=== PATIENT | male | born 1950 | race Caucasian/White ===

== ENCOUNTER 2017-07-14 06:40 | Outpatient (CLI) | payer MEDICARE ==
[~2017-07-14] VITALS: Ht 177.8 cm; Wt 84.1 kg
--- NOTE | ~2017-07-14 | HEMODYNAMI ---
PATIENT:ZEB ROJAS MEDICAL RECORD: [id number] : 50 LOCATION:[facility] ADMISSION DATE: 07/14/17 Generatedon:07/14/20179:33 Patient name: ZEB ROJAS Patient #: [id number] SSN: : 1950 Date of study: 07/14/2017 Page: Of Hemodynamic Procedure Report Patient Data Patient Demographics Procedure consent was obtained First Name: ZEB Gender: Male Last Name: CRYSTAL : 1950 Patient #: [id number] Age: 66 year(s) Race: Additional ID: [id number] Contact details [address]: [address] [place] [address] ROAD State: [place] City: [place] Zip code: [address] Past Medical History Allergies: No known allergies Admission Admission Data Admission Date: 07/14/2017 Admission Time: 6:40 Height (in.): 61 BSA: 1.81 (m2) Height (cm.): 154.94 BMI: 34.39 (kg/m2) Weight (lbs.): 182 Weight (kg.): 82.55 Procedure Procedure Types Cath Procedure Diagnostic Procedure LHC LHC w/Coronaries w/Grafts PCI Procedure PTCA PTCA Initial Miscellaneous Procedures Moderate Sedation up to 15 minutes Moderate Sedation up to 30 minutes Procedure Description Procedure Date Procedure Date: 07/14/2017 Procedure Start Time: 8:52 Procedure End Time: 9:29 Procedure Staff Name Function Kassandra Mcneil RT Monitor Judith Howell RT Scrub Luis Felipe Mendoza MD Performing Physician Lyssa Hankins RN Nurse Arianna Murphy RN Nurse Procedure Data Cath Procedure Fluoroscopy Diagnostic fluoroscopy Total fluoroscopy Time: 7.1 time: 7.1 min min Diagnostic fluoroscopy Total fluoroscopy dose: 952 dose: 952 mGy mGy Contrast Material Contrast Material Type Amount (ml) Isovue 300 127 Entry Location Entry Primary Successful Side Size Upsize Upsize Entry Closure Succes sful Closure Location (Fr) 1 (Fr) 2 (Fr) Remarks Device Remarks Femoral Right 5 Fr 6 Fr Exoseal artery Short Estimated blood loss: 10 ml Diagnostic catheters Device Type Used For End Catheter Placement Cordis 5Fr JL 4.0 Procedure Catheter (MP) Diagnostic Infinity 5Fr Procedure AR MOD Catheter Cordis 5Fr Pigtail Procedure Catheter (MP) Procedure Complications No complications Procedure Medications Medication Administration Route Dosage 0.9% NaCl I.V. 100 ml/hr Oxygen NC 2 l/min Lidocaine 2% added to field 20 Heparin Flush Bag added to field 2 bags (1000units/500ml NS) Fentanyl I.V. 50 mcg Versed I.V. 1 mg Versed I.V. 1 mg Fentanyl I.V. 50 mcg Heparin Bolus I.V. 8500 units Fentanyl I.V. 25 mcg Versed I.V. 0.5 mg Nitroglycerin IC/IA I.C. 100 mcg Hemodynamics Rest BSA: 1.81 (m2) O2 Consumption: Estimated: 209.58 (ml/min) O2 Consumption indexed : Estimated:115.79 (ml/min/m) Heart Rate: 68 (bpm) Pressure Samples Time Site Value (mmHg) Purpose Heart Use Rate(bpm) 9:04 LV 97/-11,6 Snapshot 78 9:05 AO 106/59(77) Pullback 72 9:05 LV 95/2,5 Pullback 72 Gradients Valve Time Site 1 Site 2 Mean SEP/DFP Peak To Heart Use (mmHg) (sec/min) Peak Rate (mmHg) (bpm) Aortic 9:05 LV AO 0 72 95/2,5 106/59(77) Calculations Valve P-P Mean Valve Index Valve Source Name Gradient Area Flow (cm2) Aortic 0 0 Snapshots Pre Cath Intra NCS Post Cath Vital Signs Time Heart Resp SPO2 etCO2 NIBP (mmHg) Rhythm Pain Sedation Rate (ipm) (%) (mmHg) Status Level (bpm) 8:33:11 68 16 95 147/91(122) NSR 0 (11) 10(A) , No pain 8:37:29 66 14 94 36.2 126/76(100) NSR 0 (11) 10(A) , No pain 8:41:39 65 16 97 38.4 118/75(92) NSR 0 (11) 10(A) , No pain 8:45:45 65 14 97 36.9 123/74(99) NSR 0 (11) 10(A) , No pain 8:49:57 75 16 95 9 105/66(81) NSR 0 (11) 9(A) , No pain 8:53:59 66 14 95 0 113/72(83) NSR 0 (11) 9(A) , No pain 8:58:04 69 16 95 9.8 101/67(91) NSR 0 (11) 10(A) , No pain 9:02:59 74 15 95 34.6 103/72(85) NSR 0 (11) 9(A) , No pain 9:06:59 71 15 97 46 115/73(83) NSR 0 (11) 10(A) , No pain 9:11:04 67 16 98 29.4 103/69(90) NSR 0 (11) 9(A) , No pain 9:15:10 77 14 96 0 91/56(73) NSR 0 (11) 9(A) , No pain 9:19:51 83 21 96 0 92/82(90) NSR 0 (11) 9(A) , No pain 9:23:53 85 13 96 0 81/55(63) NSR 0 (11) 10(A) , No pain 9:27:50 89 14 95 0 96/57(72) NSR 0 (11) 10(A) , No pain Medications Time Medication Route Dose Verified Delivered Reason Not es Effectiveness by by 8:11:53 0.9% NaCl I.V. 100ml/hr Luis Felipe Lyssa used for Reji Hankins RN procedure 8:12:08 Oxygen NC 2 l/min Luis Felipe Lyssa Per physician Reji Hankins RN 8:12:26 Lidocaine 2% added 20ml vial Luis Felipe Luis Felipe for local to Reji Mendoza MD anesthetic field 8:12:38 Heparin Flush added 2 bags Luis Felipe Luis Felipe used for Bag to Reji Mendoza MD procedure (1000units/500ml field NS) 8:47:38 Fentanyl I.V. 50 mcg Luis Felipe Lyssa for sedation Reji Hankins RN 8:47:48 Versed I.V. 1 mg Luis Felipe Lyssa for sedation Reji Hankins RN 8:51:49 Versed I.V. 1 mg Luis Felipe Lyssa for sedation Reji Hankins RN 8:52:02 Fentanyl I.V. 50 mcg Luis Felipe Lyssa for sedation Reji Hankins RN 9:10:16 Heparin Bolus I.V. 8500units Ulis Felipe Lyssa for ezio ified Reji Hankins RN anticoagulation by 9:13:17 Fentanyl I.V. 25 mcg Luis Felipe Omalley for sedation Reji Hankins RN 9:13:27 Versed I.V. 0.5 mg Luis Felipe Lyssa for sedation Reji Hankins RN 9:22:18 Nitroglycerin I.C. 100 mcg Luis Felipe Luis Felipe for IC/IA Reji Mendoza MD vasodilation Procedure Log Time Note 7:56:06 Kassandra Mcneil RT(R) sent for patient. Start room use. 7:56:07 Time tracking: Regular hours 7:56:12 Plan of Care:Hemodynamics will remain stable., Cardiac rhythm will remain stable., Comfort level will be maintained., Respiratory function will remain adequate., Patient/ family verbilizes understanding of procedure., Procedure tolerated without complication., Recovers from procedure without complications.. 8:11:53 0.9% NaCl 100ml/hr I.V. was administered by Lyssa Hankins RN; used for procedure; 8:12:08 Oxygen 2 l/min NC was administered by Lyssa Hankins RN; Per physician; 8:12:26 Lidocaine 2% 20ml vial added to field was administered by Luis Felipe Mendoza MD; for local anesthetic; 8:12:38 Heparin Flush Bag (1000units/500ml NS) 2 bags added to field was administered by Luis Felipe Mendoza MD; used for procedure; 8:27:26 Patient received from Pre/Post Procedure Room to [facility] 2 Alert and oriented. Tansferred to table in Supine position. 8:27:28 Warm blankets applied, and sisi hugger turned on for patient comfort. 8:27:28 Correct patient and procedure confirmed by team. 8:27:36 Signed procedure consent form obtained from patient. 8:27:37 ECG and BP/O2 sat monitors applied to patient. 8:32:03 Vital chart was started 8:36:18 Baseline sample Acquired. 8:36:22 Rhythm: sinus rhythm 8:36:23 Full Disclosure recording started 8:36:39 H&P Date Dictated: 07/04/2017 Within 30 days and on chart., H&P Addendum completed by physician on day of procedure. (MUST COMPLETE FOR ALL OUTPATIENTS). 8:36:42 Pre-procedure instructions explained to patient. 8:36:44 Family in waiting room. 8:36:46 Patient NPO since Midnight. 8:36:57 Patient allergic to No known allergies 8:37:01 Is the patient allergic to Iodine/contrast media? No. 8:37:03 Is patient on blood thinner?Yes 8:37:06 ACC The patient was administered the following blood thiners within the last 24 hours: ACCPlavix 8:37:09 Patient diabetic? No. 8:37:13 Snore? Yes 8:37:15 Sleep apnea? No 8:37:19 Dentures? No ? 8:37:28 Patient pain scale 0/10 ?. 8:37:35 IV patent on arrival in left forearm with 0.9% NaCl at O. 8:37:43 Lab results completed and on chart. 8:37:49 Right groin area was prepped with chlora-prep and draped in sterile fashion 8:37:50 Alarms reviewed by R. N. 8:37:50 Sharps counted by scrub and verified by R.N. 8:37:51 Physician paged 8:37:52 Physician arrived 8:38:31 Use device set Femoral Dx 8:40:59 ACIST Syringe (61252) opened to sterile field. 8:41:00 Bag Decanter (2002) opened to sterile field. 8:41:00 Medline Cath Pack ([id number]) opened to sterile field. 8:41:00 Terumo 5Fr [place] Sheath opened to sterile field. 8:41:01 St Chris 260cm J .035 wire opened to sterile field. 8:41:06 ACIST Hand Control (05078) opened to sterile field. 8:41:07 ACIST Manifold (37382) opened to sterile field. 8:41:07 Diagnostic Infinity 5Fr Multipack catheter opened to sterile field. 8:41:08 Tegaderm 4 x 4 (1626W) opened to sterile field. 8:41:08 PERCUTANEOUS ENTRY 19GA needle opened to sterile field. 8:47:08 --------ALL STOP TIME OUT------ 8:47:09 Final Timeout: patient, procedure, and site verified with staff and physician. All members of the team are in agreement. 8:47:11 Right groin site verified by team. 8:47:16 Physical assessment completed. ASA score P 2 - A patient with mild systemic disease as per Luis Felipe Mendoza MD. 8:47:23 Sedation plan: IV Moderate Sedation Medication:Versed, Fentanyl 8:47:38 Fentanyl 50 mcg I.V. was administered by Lyssa Hankins RN; for sedation; 8:47:48 Versed 1 mg I.V. was administered by Lyssa Hankins RN; for sedation; 8:49:25 Procedure type changed to Cath procedure, Diagnostic procedure, LHC, LHC w/Coronaries w/Grafts, PCI procedure, PTCA, PTCA Initial, Miscellaneous Procedures, Moderate Sedation up to 15 minutes, Moderate Sedation up to 30 minutes 8:50:02 Patient Height : 61 inches 8:50:08 Patient Weight : 182 lbs 8:51:49 Versed 1 mg I.V. was administered by Lyssa Hankins RN; for sedation; 8:52:02 Fentanyl 50 mcg I.V. was administered by Lyssa Hankins RN; for sedation; 8:52:07 Procedure started. 8:52:18 Local anesthetic to right femoral artery with Lidocaine 2% by Kassandra RESENDEZ(R).INITIAL ACCESS ONLY 8:55:49 A 5 Fr sheath was inserted into the Right Femoral artery 8:56:24 A Cordis 5Fr JL 4.0 Catheter (MP) was advanced over the wire and used for Procedure. 8:58:22 LCA angiography performed. 9:00:29 A Diagnostic Infinity 5Fr AR MOD Catheter was advanced over the wire and used for Procedure. 9:00:37 RCA angiography performed. 9:01:15 SVG to OM angiography performed. 9:01:30 SVG to Diag angiography performed. 9:02:44 Catheter removed. 9:03:28 INFLATOR: [employer] BasixCompak Inflation Kit (WM6100) opened to sterile field. 9:03:29 Terumo 6Fr [place] Sheath opened to sterile field. 9:03:30 Medtronic Launcher 6Fr AR 1.0 SH guide catheter opened to sterile field. 9:04:46 A Cordis 5Fr Pigtail Catheter (MP) was advanced over the wire and used for Procedure. 9:05:24 LV gram done using FLOYD 9:05:29 EF : 55 % 9:05:31 Catheter removed. 9:05:33 Proceeding to intervention. 9::49 Sheath upsized to a 6 Fr Short. 9:06:00 6 Fr AR 1 SH guide catheter was inserted over the wire 9:06:16 BMW wire advanced. 9:06:35 Mcclellan BMW [facility] 2 Straight 300cm 0.014 guide opened to sterile field. 9:07:23 TUBING: High Pressure Extension Tubing (Reji) ([id number]) opened to sterile field. 9:10:16 Heparin Bolus 8500units I.V. was administered by Lyssa Hankins RN; for anticoagulation; verified by 9:13:17 Fentanyl 25 mcg I.V. was administered by Lyssa Hankins RN; for sedation; 9:13:27 Versed 0.5 mg I.V. was administered by Lyssa Hankins RN; for sedation; 9:14:05 Inflation number: 1 A EUPHORA 3.0 x 20 Balloon ([id number]) was prepped and advanced across the Dist RCA, then inflated to 14 WING for 0:35 (min:sec). 9:15:35 Inflation number: 1 The EUPHORA 3.0 x 20 Balloon ([id number]) was reinflated across the Prox RCA, to 3 WING for 0:54 (min:sec). 9:17:31 Inflation number: 2 The EUPHORA 3.0 x 20 Balloon ([id number]) was reinflated across the Dist RCA, to 14 WING for 0:32 (min:sec). 9:18:25 Inflation number: 3 The EUPHORA 3.0 x 20 Balloon ([id number]) was reinflated across the Prox RCA, to 14 WING for 0:31 (min:sec). 9:22:18 Nitroglycerin IC/IA 100 mcg I.C. was administered by Luis Felipe Mendoza MD; for vasodilation; 9:24:30 Cordis 6Fr Exoseal opened to sterile field. 9:24:38 Balloon removed over the wire. 9:24:39 Wire removed. 9:24:40 Guide catheter removed. ::49 Sheath removed intact; hemostasis achieved with Exoseal to the Right Femoral artery. 9:26:05 Procedure ended.(Physican Out) 9:26:19 Fluoroscopy time 07.10 minutes. 9::25 Flurop Dose total: 952 9:: Fluoroscopy dose: 952 mGy 9::34 Contrast amount:Isovue 300 127ml. 9:26:36 Sharps counted by scrub and verified by R.N. 9:26:40 Insertion/operative site no bleeding no hematoma. 9:27:00 Post-op/insertion site Right Femoral artery dressed using a 4 x 4 and Tegaderm. 9:27:02 Post Procedure Pulses reassessed and unchanged 9:27:09 Post-procedure physical assessment completed. ASA score P 2 - A patient with mild systemic disease as per Luis Felipe Mendoza MD. 9:27:13 Post procedure rhythm: unchanged. 9:27:17 Estimated blood loss: 10 ml 9:27:18 Post procedure instruction explained to patient.Patient verbalizes understanding. 9:27:23 Procedure and supply charges have been captured, reviewed, submitted and are correct. 9:29:30 Procedure Complication : No complications 9:29:32 Vital chart was stopped 9:29:34 See physician's report for complete and final results. 9:29:36 Report given to Pre/Post Procedure Room. 9:29:41 Patient transfered to Pre/Post Procedure Room with Stretcher. 9:29:44 Procedure ended. 9:29:44 Full Disclosure recording stopped 9:29:48 End room use (Document Last) Intervention Summary Intervention Notes Time ActionType Lesion and Equipment Action# Pressure Duration Attributes Used 9:14:05 Inflate Dist RCA EUPHORA 1 14 00:35 balloon 3.0 x 20 Balloon ([id number]) 9:15:35 Reinflate Prox RCA EUPHORA 1 3 00:54 balloon 3.0 x 20 Balloon ([id number]) 9:17:31 Reinflate Dist RCA EUPHORA 2 14 00:32 balloon 3.0 x 20 Balloon ([id number]) 9:18:25 Reinflate Prox RCA EUPHORA 3 14 00:31 balloon 3.0 x 20 Balloon ([id number]) Device Usage Item Name Manufacture Quantity Catalog Hospital Part Current Minimal Lot# / Number Charge Number Stock Stock Serial# Code [facility] 1 93859 372380 681030 470962 20 Syringe Medical (47808) Systems Inc Bag Decanter Microtek 1 2001S 225173 51732 307448 5 (2001S) Medical Inc. Medline Cath Cardinal 1 [id number] 170609 13578 198389 5 Pack Health ([id number]) Terumo 5Fr Terumo 1 OZR416 027071 180438 972707 [address] [facility] 1 003463 208584 405133 875612 30 260cm J .035 wire ACIST Hand Acist 1 03380 571528 666836 178571 5 Control Medical (73760) Systems Inc ACIST Acist 1 97694 019111 920539 965842 5 Manifold Medical (36457) Systems Inc Diagnostic Cardinal 1 EC4822 522811 72872 624662 30 Infinity 5Fr Health Multipack catheter Tegaderm 4 x 3M 1 1626W 356174 600740 489851 5 4 (1626W) PERCUTANEOUS [facility] 1 K63829 450252 951766 5 ENTRY 19GA needle Cordis 5Fr Cardinal 1 742304 5 JL 4.0 Health Catheter (MP) Diagnostic Cardinal 1 [id number] 688786 587409 562193 15 Infinity 5Fr Health AR MOD Catheter INFLATOR [facility] 1 JU1089 463611 621027 554571 15 [facility] BasixCompak Inflation Kit (WC6201) Terumo 6Fr Terumo 1 VBX796 545826 883209 969551 40 [place] Sheath Medtronic Medtronic 1 [id number] 002169 25982 129211 1 Launcher 6Fr AR 1.0 SH guide catheter Cordis 5Fr Cardinal 1 707017 5 Pigtail Health Catheter (MP) Mcclellan BMW Mcclellan 1 7241919 658748 474175 541692 5 [facility] 2 Vascular Straight 300cm 0.014 guide TUBING [employer] 1 [id number] 456712 18106 253890 10 Pressure Medical Extension Tubing (Mendoza) ([id number]) EUPHORA 3.0 Medtronic 1 [id number] 917641 854366 797973 5 [id number] x 20 Balloon ([id number]) Cordis 6Fr Cardinal 1 EX600 676013 859957 970810 10 [facility] Bizzingo Signature Audit [place] Stage Time Signature Unsigned Intra-Procedure 07/14/2017 Kassandra Mcneil 9:33:25 AM RT(R) Signatures Monitor : Kassandra Mcneil Signature : RT Date : Time : [place] [id number] [place] [address]
[~2017-07-14 06:40] MED LIST: BAYER CHEWABLE81 MG PO; DIOVAN320 MG PO; HYDROCHLOROTH12.5 M1 PO; LIPITOR80 MG PO; PLAVIX75 MG PO; PROTONIX40 MG; ZETIA10 MG; ZYLOPRIM300 MG PO
[2017-07-14] MEDS ORDERED: REGLAN10 MG PO (06:54)
[2017-07-14 07:01] VITALS: BP 136/82; Ht 177.8 cm; Wt 84.1 kg
[2017-07-14 07:22] LABS: BASOPHILS 0.3 % (0-2); HEMATOCRIT 47.8 % (42.0-54.0); HEMOGLOBIN 16.9 g/dL (13.5-17.5); IMMATURE GRANULOCYTES 0.2 % (0-5); LYMPHOCYTES 28.3 % (15-50); MCH 31.5 pg (26.0-34.0); MCHC 35.4 g/dL (31.0-37.0); MCV 89.2 fL (80.0-100.0); MEAN PLATELET VOLUME 9.7 fL (7.4-10.4); MONOCYTES 9.4 % (2-11); NEUTROPHILS 60.8 % (40-80); PLATELET COUNT 189 10x3/uL (130-400); RBC 5.36 10x6/uL (4.20-6.10); RDW 13.3 % (11.5-14.5)
[2017-07-14 07:43] LABS: ANION GAP 11.5 mmol/L (8-16); CALCIUM 9.4 mg/dL (8.5-10.1); CARBON DIOXIDE 29.1 mmol/L (21.0-32.0); CREATININE - SERUM 1.3 mg/dL (0.6-1.3); POTASSIUM - SERUM 3.6 mmol/L (3.5-5.1)
== END 2017-07-14 14:20 | disposition home or self-care (01) ==
LOC: D.CATH 06:40
PROVIDERS: Internal Medicine Cardiovascular Disease
DX: I25.119 Atherosclerotic heart disease of native coronary artery with unspecified angina pectoris (principal); T82.855A Stenosis of coronary artery stent, initial encounter; Z95.1 Presence of aortocoronary bypass graft; Z01.812 Encounter for preprocedural laboratory examination

== ENCOUNTER → 2019-03-20 09:39 | Outpatient (CLI) | payer OTHER ==
[2017-07-14 07:01] VITALS: BMI 26.6
[~2019-03-20 09:39] MED LIST changes: +REGLAN10 MG PO
== END | disposition home or self-care (01) ==
LOC: D.HCCARDIO 09:39
PROVIDERS: ATTEND Internal Medicine Cardiovascular Disease
DX: I34.0 Nonrheumatic mitral (valve) insufficiency (principal); I25.10 Atherosclerotic heart disease of native coronary artery without angina pectoris

== ENCOUNTER → 2020-05-30 11:01 | Outpatient (CLI) | payer OTHER ==
[2017-07-14 07:01] VITALS: BMI 26.6
== END | disposition home or self-care (01) ==
LOC: D.HCCECHO 11:01
PROVIDERS: ATTEND Internal Medicine Cardiovascular Disease
DX: I25.10 Atherosclerotic heart disease of native coronary artery without angina pectoris (principal)